=== PATIENT | female | born 1940 | race Two or more races ===

== ENCOUNTER 2019-04-15 14:32 | Inpatient (IN) | payer OTHER ==
[2019-04-24] MEDS ORDERED: ENALAPRIL MALEA10 MG (13:06)
[2019-04-24] MEDS ORDERED: TIROSINT75 MCG (13:06)
[2019-04-24] MEDS ORDERED: JANUMET 50-5001 EACH (13:06)
[2019-04-24] MEDS ORDERED: SIMVASTATIN80 MG (13:06)
[2019-04-24] MEDS ORDERED: FORTAMET500 MG (13:07)
[2019-04-24] MEDS ORDERED: SUPPORT-5001 EACH (13:07)
[2019-04-24] MEDS ORDERED: EVISTA60 MG (13:07)
[2019-04-24] MEDS ORDERED: GLIMEPIRIDE4 MG (13:07)
== END 2019-05-03 17:24 | disposition home or self-care (01) | DRG 331 ==
LOC: SURG 05-01 07:08 → O/R 05-01 07:08 → SURG 05-01 11:00
PROVIDERS: ADMIT Colon & Rectal Surgery
PROC: 0DTN4ZZ Resection of Sigmoid Colon, Percutaneous Endoscopic Approach (ICD-10-PCS; principal; 2019-05-01 15:15)
DX: K62.7 Radiation proctitis (principal); K63.89 Other specified diseases of intestine; E11.9 Type 2 diabetes mellitus without complications; Z79.4 Long term (current) use of insulin